=== PATIENT | female | born 1980 | race Caucasian/White ===

== ENCOUNTER 2017-10-17 05:10 | Emergency (ER) | payer OTHER ==
[~2017-10-17] VITALS: Ht 165.1 cm; Wt 111.1 kg
[~2017-10-17 05:10] MED LIST: AMOX500 PO; BISA5EC PO; Bactrim Ds Tab1 EACH PO; DIBU30TO PR; DOCU100 PO; DOXY100 PO; EXPECTA PRENAT1 EACH; HYDACE25S PR; HYDCOR2.5A PR; IBUP800 PO; KETO10 PO; METR500 PO; Monodox100 MG PO; Naprosyn500 MG PO; OXYACE5T PO; PRAHYD1AE TOP; PROCODE120 PO; Percocet 5-3251 EACH PO; Ventolin/Prove6.7 GM INH; Zofran Odt4 MG SL
[2017-10-17 05:54] LABS: BASOPHILS ABSOLUTE AUTO 0.03 K/mm3 (0.00-0.23); BASOPHILS PERCENT AUTO 0 % (0-2); EOSINOPHILS ABSOLUTE AUTO 0.12 K/mm3 (0.00-0.68); EOSINOPHILS PERCENT AUTO 1 % (0-6); Hemoglobin 13.5 g/dL (11.5-16.0); IMMATURE GRAN ABSOLUTE AUTO 0.02 K/mm3 (0.00-0.10); IMMATURE GRAN PERCENT AUTO 0 % (0-1); LYMPHOCYTES ABSOLUTE AUTO 2.91 K/mm3 (0.84-5.20); LYMPHOCYTES PERCENT AUTO 32 % (21-46); MONOCYTES ABSOLUTE AUTO 0.66 K/mm3 (0.16-1.47); MONOCYTES PERCENT AUTO 7 % (4-13); Mean Corpuscular HGB Conc 33.8 g/dL (31.5-36.5); Mean Corpuscular Volume 92 fL (80-100); NEUTROPHILS ABSOLUTE AUTO 5.45 K/mm3 (1.96-9.15); NEUTROPHILS PERCENT AUTO 59 % (41-73); Platelet Count 314 K/mm3 (150-400); RDW Coefficient Variation 13.4 % (11.7-14.2); RDW Standard Deviation 45.5 fL (35.1-46.3); Red Blood Cell Count 4.36 M/mm3 (3.80-5.20); White Blood Cell Count 9.19 K/mm3 (4.00-11.30)
[2017-10-17 06:13] LABS: Alanine Aminotransfer (ALT/SGP 46 U/L (12-78); Albumin, Blood 3.6 g/dL (3.4-5.0); Albumin/Globulin Ratio 0.8 (0.8-1.8); Alk Phos 73 U/L (50-136); Anion Gap 9 mmol/L (6-16); Aspartate Aminotrans (AST/SGOT 23 U/L (12-37); Bilirubin, Total 0.3 mg/dL (0.1-1.0); Blood Urea Nitrogen 9 mg/dL (8-24); Bun/Creatinine Ratio 15.9 (12.0-20.0); CO2, Blood 24 mmol/L (21-32); Calcium, Blood 9.2 mg/dL (8.5-10.1); Chloride, Blood 105 mmol/L (98-108); Creatinine, Blood 0.57 mg/dL (0.40-1.00); Globulin, Blood 4.3 g/dL (2.2-4.0); Glomerular Filtration Rate >60 (60-); Glucose, Blood 94 mg/dL (70-99); Sodium, Blood 138 mmol/L (136-145); Total Protein, Blood 7.9 g/dL (6.4-8.2)
[2017-10-17 07:12] LABS: Beta HCG, Quantitative, Serum 11158 mIU/mL (0-3)
[2017-10-17 07:49] LABS: Source, Urine Clean Catch
[2017-10-17 07:51] LABS: Bilirubin, Urine Neg (Neg); Blood, Urine 2+ (Neg); Glucose Qualitative, Urine Neg (Neg); Ketones, Urine Neg (Neg); Leukocyte Esterase, Urine Neg (Neg); Nitrite, Urine Neg (Neg); Protein, Urine Neg (Neg); Urobilinogen, Urine NORM (Normal)
[2017-10-17 09:16] LABS: Appearance, Urine Clear (Clear); Color, Urine Yellow (P-Yellow); Red Blood Cells, Urine 0-2 /hpf (0-2); Squamous Epithelial Cells Few /hpf (Few); White Blood Cells, Urine Not Seen /hpf (0-5)
[2017-10-17 09:17] LABS: Bacteria Not Seen /hpf; Mucus Light (0-Heavy)
== END 2017-10-17 08:27 | disposition home or self-care (01) ==
LOC: ER 05:10
PROVIDERS: Emergency Medicine
DX: O20.9 Hemorrhage in early pregnancy, unspecified (principal); Z91.018 Allergy to other foods; Z87.891 Personal history of nicotine dependence; Z3A.01 Less than 8 weeks gestation of pregnancy
CPT/HCPCS: 36415; 76801; 76817; 80053; 81001; 84702; 85025; 86900; 86901; 99284-25

== ENCOUNTER 2018-06-15 01:48 | Emergency (ER) | payer OTHER ==
[~2018-06-15] VITALS: Ht 165.1 cm; Wt 104.3 kg
[2018-06-15 02:37] LABS: BASOPHILS ABSOLUTE AUTO 0.05 K/mm3 (0.00-0.23); BASOPHILS PERCENT AUTO 1 % (0-2); EOSINOPHILS ABSOLUTE AUTO 0.13 K/mm3 (0.00-0.68); EOSINOPHILS PERCENT AUTO 1 % (0-6); Hematocrit 42.9 % (33.0-51.0); Hemoglobin 14.5 g/dL (11.5-16.0); IMMATURE GRAN ABSOLUTE AUTO 0.02 K/mm3 (0.00-0.10); IMMATURE GRAN PERCENT AUTO 0 % (0-1); LYMPHOCYTES ABSOLUTE AUTO 5.72 K/mm3 (0.84-5.20); LYMPHOCYTES PERCENT AUTO 52 % (21-46); MONOCYTES ABSOLUTE AUTO 0.89 K/mm3 (0.16-1.47); MONOCYTES PERCENT AUTO 8 % (4-13); Mean Corpuscular HGB 31.1 pg (26.0-34.0); Mean Corpuscular HGB Conc 33.8 g/dL (31.5-36.5); Mean Corpuscular Volume 92 fL (80-100); Mean Platelet Volume 9.2 fL (9.1-12.4); NEUTROPHILS ABSOLUTE AUTO 4.17 K/mm3 (1.96-9.15); NEUTROPHILS PERCENT AUTO 38 % (41-73); Platelet Count 421 K/mm3 (150-400); RDW Coefficient Variation 12.7 % (11.7-14.2); RDW Standard Deviation 42.6 fL (35.1-46.3); Red Blood Cell Count 4.66 M/mm3 (3.80-5.20); White Blood Cell Count 10.98 K/mm3 (4.00-11.30)
[2018-06-15 02:51] LABS: Alanine Aminotransfer (ALT/SGP 36 U/L (12-78); Albumin, Blood 4.2 g/dL (3.4-5.0); Alk Phos 87 U/L (50-136); Anion Gap 12 mmol/L (6-16); Aspartate Aminotrans (AST/SGOT 21 U/L (12-37); Bilirubin, Total 0.2 mg/dL (0.1-1.0); Blood Urea Nitrogen 14 mg/dL (8-24); Bun/Creatinine Ratio 21.5 (12.0-20.0); CO2, Blood 21 mmol/L (21-32); Calcium, Blood 9.6 mg/dL (8.5-10.1); Chloride, Blood 106 mmol/L (98-108); Creatinine, Blood 0.65 mg/dL (0.40-1.00); Globulin, Blood 4.4 g/dL (2.2-4.0); Glomerular Filtration Rate >60 (60-); Glucose, Blood 118 mg/dL (70-99); Potassium, Blood 3.5 mmol/L (3.5-5.5); Sodium, Blood 139 mmol/L (136-145); Total Protein, Blood 8.6 g/dL (6.4-8.2); Troponin I <0.015 ng/mL (0.000-0.040)
== END 2018-06-15 03:55 | disposition home or self-care (01) ==
LOC: ER 01:48
PROVIDERS: Emergency Medicine
DX: I48.91 Unspecified atrial fibrillation (principal); Z91.018 Allergy to other foods; Z87.891 Personal history of nicotine dependence
CPT/HCPCS: 36415; 71046; 80053; 83880; 84484; 85025; 93005; 93010; 96361; 96374; 99285-25; J7030

== ENCOUNTER 2019-01-20 08:59 | Emergency (ER) | payer OTHER ==
[~2019-01-20] VITALS: Ht 165.1 cm; Wt 85.7 kg
[2019-01-20] MEDS ORDERED: KETO10 PO (10:38)
[2019-01-20] MEDS ORDERED: Percocet 5-3251 EACH PO (10:38)
== END 2019-01-20 11:27 | disposition home or self-care (01) ==
LOC: ER 08:59
DX: S82.832A Other fracture of upper and lower end of left fibula, initial encounter for closed fracture (principal); S82.892A Other fracture of left lower leg, initial encounter for closed fracture; X50.9XXA Other and unspecified overexertion or strenuous movements or postures, initial encounter; Z91.018 Allergy to other foods
CPT/HCPCS: 29515; 73610; 96372-59; 99283-25; A9270-GY; J1885

== ENCOUNTER 2019-10-13 06:47 | Emergency (ER) | payer OTHER ==
[~2019-10-13] VITALS: Ht 165.1 cm; Wt 85.7 kg
[~2019-10-13 06:47] MED LIST changes: +CYCL10 PO
[2019-10-13] MEDS ORDERED: Roxicodone5 MG PO (08:51)
[2019-10-13] MEDS ORDERED: Naproxen500 MG PO (08:51)
[2019-10-13] MEDS ORDERED: Neurontin 300300 MG PO (08:51)
== END 2019-10-13 09:02 | disposition home or self-care (01) ==
LOC: ER 06:47
DX: M54.12 Radiculopathy, cervical region (principal); Z91.018 Allergy to other foods
CPT/HCPCS: 72040; 96372; 99283-25; J1170

== ENCOUNTER 2019-11-11 11:03 | Emergency (ER) | payer OTHER ==
[~2019-11-11] VITALS: Ht 165.1 cm; Wt 86.2 kg
[~2019-11-11 11:03] MED LIST changes: +Naproxen500 MG PO; +Neurontin 300300 MG PO; +Roxicodone5 MG PO
[2019-11-11] MEDS ORDERED: IBUP800 PO (11:56)
[2019-11-11] MEDS ORDERED: METPRE4DP PO (11:56)
[2019-11-11] MEDS ORDERED: PREG150 PO (11:56)
== END 2019-11-11 13:14 | disposition home or self-care (01) ==
LOC: ER 11:03
DX: M54.12 Radiculopathy, cervical region (principal); F17.200 Nicotine dependence, unspecified, uncomplicated; Z91.018 Allergy to other foods; Z79.899 Other long term (current) drug therapy
CPT/HCPCS: 96372; 99283-25; J1100; J1885

== ENCOUNTER 2019-11-20 14:02 | Emergency (ER) | payer OTHER ==
[~2019-11-20] VITALS: Ht 165.1 cm; Wt 86.2 kg
[~2019-11-20 14:02] MED LIST changes: +METPRE4DP PO; +PREG150 PO
[2019-11-20] MEDS ORDERED: Percocet 5-3251 EACH PO (16:33)
== END 2019-11-20 17:24 | disposition home or self-care (01) ==
LOC: ER 14:02
DX: M54.6 Pain in thoracic spine (principal); M25.512 Pain in left shoulder; F17.210 Nicotine dependence, cigarettes, uncomplicated; Z91.018 Allergy to other foods; Z88.8 Allergy status to other drugs, medicaments and biological substances; W10.9XXA Fall (on) (from) unspecified stairs and steps, initial encounter
CPT/HCPCS: 72070; 73030; 99283-25

== ENCOUNTER 2020-09-23 15:56 | Emergency (ER) | payer OTHER ==
[~2020-09-23] VITALS: Ht 165.1 cm; Wt 104.3 kg
[2020-09-23 17:11] LABS: BASOPHILS ABSOLUTE AUTO 0.04 K/mm3 (0.00-0.23); BASOPHILS PERCENT AUTO 0 % (0-2); EOSINOPHILS ABSOLUTE AUTO 0.08 K/mm3 (0.00-0.68); EOSINOPHILS PERCENT AUTO 1 % (0-6); Hematocrit 36.5 % (33.0-51.0); Hemoglobin 12.5 g/dL (11.5-16.0); IMMATURE GRAN ABSOLUTE AUTO 0.06 K/mm3 (0.00-0.10); IMMATURE GRAN PERCENT AUTO 1 % (0-1); LYMPHOCYTES ABSOLUTE AUTO 2.11 K/mm3 (0.84-5.20); LYMPHOCYTES PERCENT AUTO 18 % (21-46); MONOCYTES ABSOLUTE AUTO 0.74 K/mm3 (0.16-1.47); MONOCYTES PERCENT AUTO 6 % (4-13); Mean Corpuscular HGB Conc 34.2 g/dL (31.5-36.5); Mean Corpuscular Volume 96 fL (80-100); Mean Platelet Volume 9.2 fL (9.1-12.4); NEUTROPHILS ABSOLUTE AUTO 8.45 K/mm3 (1.96-9.15); NEUTROPHILS PERCENT AUTO 74 % (41-73); Platelet Count 268 K/mm3 (150-400); RDW Coefficient Variation 13.5 % (11.7-14.2); RDW Standard Deviation 47.5 fL (35.1-46.3); Red Blood Cell Count 3.79 M/mm3 (3.80-5.20); White Blood Cell Count 11.48 K/mm3 (4.00-11.30)
[2020-09-23 17:15] LABS: Source, Urine Clean Catch
[2020-09-23 17:25] LABS: Alanine Aminotransfer (ALT/SGP 24 U/L (12-78); Albumin, Blood 3.4 g/dL (3.4-5.0); Albumin/Globulin Ratio 0.8 (0.8-1.8); Alk Phos 52 U/L (50-136); Anion Gap 14 mmol/L (6-16); Aspartate Aminotrans (AST/SGOT 22 U/L (12-37); Bilirubin, Total 0.2 mg/dL (0.1-1.0); Blood Urea Nitrogen 9 mg/dL (8-24); Bun/Creatinine Ratio 21.6 (12.0-20.0); CO2, Blood 18 mmol/L (21-32); Calcium, Blood 9.2 mg/dL (8.5-10.1); Chloride, Blood 105 mmol/L (98-108); Creatinine, Blood 0.42 mg/dL (0.40-1.00); Globulin, Blood 4.4 g/dL (2.2-4.0); Glomerular Filtration Rate >60 (60-); Glucose, Blood 80 mg/dL (70-99); Potassium, Blood 3.4 mmol/L (3.5-5.5); Sodium, Blood 137 mmol/L (136-145); Total Protein, Blood 7.8 g/dL (6.4-8.2)
[2020-09-23 17:26] LABS: Appearance, Urine Hazy (Clear); Bilirubin, Urine Neg (Neg); Blood, Urine Neg (Neg); Color, Urine Yellow (P-Yellow); Glucose Qualitative, Urine Neg (Neg); Ketones, Urine 3+ (Neg); Leukocyte Esterase, Urine Neg (Neg); Nitrite, Urine Neg (Neg); Protein, Urine 1+ (Neg); Urobilinogen, Urine NORM (Normal)
[2020-09-23 17:53] LABS: Bacteria Many /hpf; Red Blood Cells, Urine 0-2 /hpf (0-2); Squamous Epithelial Cells Mod /hpf (Few); White Blood Cells, Urine 0-2 /hpf (0-5)
== END 2020-09-23 19:05 | disposition home or self-care (01) ==
LOC: ER 15:56
PROVIDERS: Physician Assistant
DX: R00.2 Palpitations (principal); I48.91 Unspecified atrial fibrillation; F17.210 Nicotine dependence, cigarettes, uncomplicated; Z91.018 Allergy to other foods; Z79.899 Other long term (current) drug therapy
CPT/HCPCS: 36415; 80053; 81001; 85025; 87086; 93005; 93010; 99284-25

== ENCOUNTER 2021-01-24 09:45 | Observation (INO) | payer OTHER ==
[~2021-01-24] VITALS: Ht 165.1 cm; Wt 109.0 kg
[2021-01-24 10:33] LABS: BASOPHILS ABSOLUTE AUTO 0.01 K/mm3 (0.00-0.23); BASOPHILS PERCENT AUTO 0 % (0-2); EOSINOPHILS ABSOLUTE AUTO 0.03 K/mm3 (0.00-0.68); EOSINOPHILS PERCENT AUTO 0 % (0-6); Hematocrit 34.4 % (33.0-51.0); Hemoglobin 11.6 g/dL (11.5-16.0); IMMATURE GRAN ABSOLUTE AUTO 0.02 K/mm3 (0.00-0.10); IMMATURE GRAN PERCENT AUTO 0 % (0-1); LYMPHOCYTES ABSOLUTE AUTO 1.37 K/mm3 (0.84-5.20); LYMPHOCYTES PERCENT AUTO 20 % (21-46); MONOCYTES ABSOLUTE AUTO 0.57 K/mm3 (0.16-1.47); MONOCYTES PERCENT AUTO 8 % (4-13); Mean Corpuscular HGB 31.2 pg (26.0-34.0); Mean Corpuscular HGB Conc 33.7 g/dL (31.5-36.5); Mean Corpuscular Volume 93 fL (80-100); Mean Platelet Volume 9.1 fL (9.1-12.4); NEUTROPHILS ABSOLUTE AUTO 4.89 K/mm3 (1.96-9.15); NEUTROPHILS PERCENT AUTO 71 % (41-73); Platelet Count 219 K/mm3 (150-400); RDW Coefficient Variation 13.9 % (11.7-14.2); RDW Standard Deviation 47.8 fL (35.1-46.3); Red Blood Cell Count 3.72 M/mm3 (3.80-5.20); White Blood Cell Count 6.89 K/mm3 (4.00-11.30)
[2021-01-24 11:16] LABS: Alanine Aminotransfer (ALT/SGP 16 U/L (12-78); Albumin, Blood 2.9 g/dL (3.4-5.0); Albumin/Globulin Ratio 0.8 (0.8-1.8); Alk Phos 112 U/L (50-136); Anion Gap 10 mmol/L (6-16); Aspartate Aminotrans (AST/SGOT 13 U/L (12-37); Bilirubin, Total 0.4 mg/dL (0.1-1.0); Blood Urea Nitrogen 7 mg/dL (8-24); Bun/Creatinine Ratio 13.5 (12.0-20.0); CO2, Blood 20 mmol/L (21-32); Chloride, Blood 107 mmol/L (98-108); Creatinine, Blood 0.52 mg/dL (0.40-1.00); Globulin, Blood 3.7 g/dL (2.2-4.0); Glomerular Filtration Rate >60 (60-); Glucose, Blood 94 mg/dL (70-99); Potassium, Blood 3.5 mmol/L (3.5-5.5); Sodium, Blood 137 mmol/L (136-145); Total Protein, Blood 6.6 g/dL (6.4-8.2)
[2021-01-24 13:11] LABS: Protein, Urine Random 13.7 mg/dL (0.0-11.9)
[2021-01-24 13:12] LABS: Creatinine, Urine Random 50.3 mg/dL (27.00-270.00); Protein/Creat Ratio, Ur Random 0.3
[2021-01-24] MEDS ORDERED: LABE100 PO (14:22)
[2021-01-24] MEDS ORDERED: PRENATAL TABLE1 EAC2 PO (14:23)
[2021-01-24] MEDS ORDERED: BUTALB-ACETAMI1 EAC7 PO (14:27)
[2021-01-24 15:07] LABS: Influenza A, PCR NEGATIVE (NEGATIVE); Influenza B, PCR NEGATIVE (NEGATIVE); Resp Syncytial Virus, PCR NEGATIVE (NEGATIVE); SARS-Cov-2 (COVID-19) PCR, MMC NEGATIVE (NEGATIVE)
--- NOTE | 2021-01-24 17:10 | NUR ---
STATES PAIN IN HEAD COMING BACK WILL MEDICATE AT NEXT DOSE DUE, COMFORT MEASURES ARENT WORKING, STATES SHE DOESNT WANT ANYTHING STRONGER UNTIL NEXT DOSE DUE, STATES 10/05, ROOM DARK DENIES NAUSEA, EATING DINNER
--- NOTE | 2021-01-24 18:28 | NUR ---
STATES HEADACHE BACK AT 8 STATES NOT WORSE THAN WHEN SHE CAME IN, STATES NOTHNG REALLY HELPS, MEDICATED, CBG 123 AFTER DINNER, ROOM DARK,
[2021-01-25 14:37] LABS: Protein, Urine Quantitative 24.6 mg/dL (0.0-11.9)
--- NOTE | 2021-01-25 16:45 | NUR ---
Imaging come to get pt for CT scan. Pt reports H/A persisting, declines medications as they dont' seem to be doing much for her. Pt is curious is she is able to d/c home after CT or if she needs to wait for results. CNM is coming to round after office hours and said she would see pt prior to discharge.
--- NOTE | 2021-01-25 17:04 | NUR ---
Pt just back from CT.
--- NOTE | 2021-01-25 18:30 | NUR ---
Printed preeclampsia/eclampsia instructions given for pt to review. Pt verbalizes understanding of follow up appointments, home care and precautions. Denies additional questions/concerns.
== END 2021-01-25 18:35 | disposition home or self-care (01) ==
LOC: BC 09:45 → OBS 09:45 → BC 13:50
PROVIDERS: Advanced Practice Midwife; ADMIT Obstetrics & Gynecology
DX: O13.3 Gestational [pregnancy-induced] hypertension without significant proteinuria, third trimester (principal); Z3A.35 35 weeks gestation of pregnancy; O26.893 Other specified pregnancy related conditions, third trimester; R56.9 Unspecified convulsions; O99.333 Smoking (tobacco) complicating pregnancy, third trimester; F17.210 Nicotine dependence, cigarettes, uncomplicated; Z91.018 Allergy to other foods; Z20.822 Contact with and (suspected) exposure to COVID-19
CPT/HCPCS: 0241U; 36415; 36416; 59025; 70450; 76819; 80053; 82570; 82947; 84156; 85025; 96374; A9270; G0378; J2405

== ENCOUNTER 2021-02-08 07:28 | Inpatient (IN) | payer OTHER ==
--- NOTE | 2021-02-07 14:48 | NUR ---
P/C TO PATIENT LEFT MESSAGE TO CALL [facility]
[~2021-02-08] VITALS: Ht 165.1 cm; Wt 105.5 kg
[~2021-02-08 07:28] MED LIST changes: +BUTALB-ACETAMI1 EAC7 PO; +LABE100 PO; +PRENATAL TABLE1 EAC2 PO
[2021-02-08] MEDS ORDERED: IRON18 MG (08:32)
[2021-02-08 08:33] LABS: BASOPHILS ABSOLUTE AUTO 0.02 K/mm3 (0.00-0.23); BASOPHILS PERCENT AUTO 0 % (0-2); EOSINOPHILS ABSOLUTE AUTO 0.05 K/mm3 (0.00-0.68); EOSINOPHILS PERCENT AUTO 1 % (0-6); Hematocrit 34.7 % (33.0-51.0); Hemoglobin 11.9 g/dL (11.5-16.0); IMMATURE GRAN ABSOLUTE AUTO 0.03 K/mm3 (0.00-0.10); IMMATURE GRAN PERCENT AUTO 0 % (0-1); LYMPHOCYTES ABSOLUTE AUTO 1.52 K/mm3 (0.84-5.20); LYMPHOCYTES PERCENT AUTO 19 % (21-46); MONOCYTES PERCENT AUTO 9 % (4-13); Mean Corpuscular HGB 30.8 pg (26.0-34.0); Mean Corpuscular HGB Conc 34.3 g/dL (31.5-36.5); Mean Corpuscular Volume 90 fL (80-100); Mean Platelet Volume 9.1 fL (9.1-12.4); NEUTROPHILS PERCENT AUTO 70 % (41-73); Platelet Count 264 K/mm3 (150-400); RDW Coefficient Variation 14.1 % (11.7-14.2); RDW Standard Deviation 46.3 fL (35.1-46.3); Red Blood Cell Count 3.86 M/mm3 (3.80-5.20); White Blood Cell Count 7.82 K/mm3 (4.00-11.30)
--- NOTE | 2021-02-08 09:21 | NUR ---
PT HERE FOR [facility], IN STARTED PT TOLRATED WELL. PT DESIRE STERILIZATION. PAPER WORK SIGNED.
[2021-02-08 10:44] LABS: PCO2 Cord - Arterial 50.5 mmHg (40-50); PO2 Cord - Arterial 15.9 mmHg (16-20); pH Cord - Arterial 7.23 (7.28-7.35)
[2021-02-08 10:45] LABS: PCO2 Cord - Venous 42.7 mmHg (40-50); PO2 Cord - Venous 23.6 mmHg (28-32); pH Umbilical Cord - Venous 7.34 (7.26-7.35)
--- NOTE | 2021-02-08 11:01 | NUR ---
02/08/21 1101 Roseline Rapp DELIVERY OF VIABLE FEMALE INFANT, APGARS 9/9, WEIGHT 3125 GMS. PLACENTA DELIVERED MANUALLY AND COMPLETE. BILATERAL SALPINGECTOMY PERFORMED. RIGHT AND LEFT FALLOPIAN TUBE SEGMENTS SENT TO PATHOLOGY.
--- NOTE | 2021-02-08 12:13 | NUR ---
NB BABY GIRL BORN AT 37 1/7 GESTATION 9, DELIVERY BY [facility], CORD GAS SENT WITH RT
--- NOTE | 2021-02-08 18:50 | NUR ---
pt feels better with the dilaudid 1mg given, she feels like she is a whimp. reports this worked for her pain
--- NOTE | 2021-02-08 20:29 | NUR ---
IV machine was going off, notified nurse. Patient was feeding baby. No other needs from patient at this time.
[2021-02-09 06:00] LABS: BASOPHILS ABSOLUTE AUTO 0.03 K/mm3 (0.00-0.23); BASOPHILS PERCENT AUTO 0 % (0-2); EOSINOPHILS ABSOLUTE AUTO 0.07 K/mm3 (0.00-0.68); EOSINOPHILS PERCENT AUTO 1 % (0-6); Hematocrit 30.2 % (33.0-51.0); Hemoglobin 10.5 g/dL (11.5-16.0); IMMATURE GRAN ABSOLUTE AUTO 0.04 K/mm3 (0.00-0.10); IMMATURE GRAN PERCENT AUTO 0 % (0-1); LYMPHOCYTES ABSOLUTE AUTO 2.16 K/mm3 (0.84-5.20); LYMPHOCYTES PERCENT AUTO 19 % (21-46); MONOCYTES ABSOLUTE AUTO 1.02 K/mm3 (0.16-1.47); MONOCYTES PERCENT AUTO 9 % (4-13); Mean Corpuscular HGB 31.9 pg (26.0-34.0); Mean Corpuscular HGB Conc 34.8 g/dL (31.5-36.5); Mean Corpuscular Volume 92 fL (80-100); Mean Platelet Volume 9.1 fL (9.1-12.4); NEUTROPHILS ABSOLUTE AUTO 8.11 K/mm3 (1.96-9.15); NEUTROPHILS PERCENT AUTO 71 % (41-73); Platelet Count 217 K/mm3 (150-400); RDW Standard Deviation 47.3 fL (35.1-46.3); Red Blood Cell Count 3.29 M/mm3 (3.80-5.20); White Blood Cell Count 11.43 K/mm3 (4.00-11.30)
--- NOTE | 2021-02-09 21:45 | NUR ---
SPOKE WITH PATIENT ABOUT PAIN CONTROL. PATIENT DECLINES HEATING PAD DUE TO HER BEING HOT. INCISION WAS ASSESSED: WELL APPROXIMATED, DRY, SMALL AMOUNT OF DRAINAGE ON THE RIGHT SIDE. READJUSTED BINDER. PATIENT REPORTS SHE HAS BEEN GOT UP A LOT DURING THE DAY AND TRIED WALKING AROUND IN HER ROOM. SHE HAS INCREASED HER WATER INTAKE, WHICH CAUSES HER TO VOID MORE, CAUSING MORE PAIN, PER PATIENT. WE DISCUSSED THE NEED TO GET UP AND AROUND. SHE WAS ENCOURAGED TO NOT DECREASE HER WATER INTAKE. SHE REPOSITIONED HERSELF IN BED. HER SO IS TRYING TO USE DISTRACTION TO HELP HER PAIN. SHE REPORTED HER PAIN BEING 9/10. SHE DOES APPEAR TO BE IN PAIN, THOUGH SHE IS USING HER PHONE AND TALKING WELL.
--- NOTE | 2021-02-10 02:20 | NUR ---
PATIENT REQUESTED PAIN MEDICATION DUE TO A PAIN RATING OF 10/10 ON A PAIN SCALE. I DID ASK IF SHE AGREED THAT THIS IS THE WORST PAIN SHE EVER FELT IN HER LIFE AND SHE SAID SHE THINKS SO. PATIENT IS RELAXED, SITTING UP IN BED, USING HER PHONE. HER FACIAL EXPRESSIONS MAKES HER APPEAR TO BE IN PAIN, OTHERWISE SHE IS NOT SHOWING OTHER APPEARANCE SIGNS THAT SHE IS IN SIGNIFICANT PAIN OR IN DISTRESS.
--- NOTE | 2021-02-10 03:30 | NUR ---
WHEN RE-EVALUATING THE PATIENT'S PAIN, SHE REPORTS THAT HER PAIN DID NOT DECREASE FROM A SCORE OF 10/10. IT WAS OFFERED TO PATIENT TO GET UP AND SHOWER, WALK, HEATING PAD, POSITION CHANGE AND THESE WERE DECLINED. VITAL SIGNS HAVE BEEN WNL AND SHE DOES NOT APPEAR TO BE IN DISTRESS.
--- NOTE | 2021-02-10 06:30 | NUR ---
PATIENT REPORTS PAIN 9/10. BROUGHT PAIN MEDICATED REQUESTED. PATIENT IS RELAXED ON THE BED, SITTING UP, USING HER PHONE.
[2021-02-10] MEDS ORDERED: IBUP800 PO (09:38)
[2021-02-10] MEDS ORDERED: Percocet 5-3251 EACH PO (09:38)
--- NOTE | 2021-02-10 10:15 | NUR ---
DISCHARGED HOME WITH . BANDS MATCHED.
== END 2021-02-10 10:20 | disposition home or self-care (01) | DRG 784 ==
LOC: BC 07:28
PROVIDERS: ADMIT Obstetrics & Gynecology
PROC: 10D00Z1 Extraction of Products of Conception, Low, Open Approach (ICD-10-PCS; principal; 2021-02-08 09:45)
PROC: 0UT70ZZ Resection of Bilateral Fallopian Tubes, Open Approach (ICD-10-PCS; 2021-02-08 09:45)
DX: O34.211 Maternal care for low transverse scar from previous cesarean delivery (principal); O99.354 Diseases of the nervous system complicating childbirth; O99.324 Drug use complicating childbirth; O40.3XX0 Polyhydramnios, third trimester, not applicable or unspecified; O13.4 Gestational [pregnancy-induced] hypertension without significant proteinuria, complicating childbirth; O24.420 Gestational diabetes mellitus in childbirth, diet controlled; O99.214 Obesity complicating childbirth; E66.9 Obesity, unspecified; F12.90 Cannabis use, unspecified, uncomplicated; Z20.822 Contact with and (suspected) exposure to COVID-19; G40.909 Epilepsy, unspecified, not intractable, without status epilepticus; O99.334 Smoking (tobacco) complicating childbirth; F17.210 Nicotine dependence, cigarettes, uncomplicated; Z3A.37 37 weeks gestation of pregnancy; Z30.2 Encounter for sterilization; Z37.0 Single live birth
CPT/HCPCS: 36415; 82803; 82947; 85025; 86850; 86900; 86901; 88302; A9270; J0690; J1100; J1170; J1580; J1885; J2210; J2270; J2370; J2405; J2590; J2704; J2765; J3010; J7120

== ENCOUNTER 2023-11-16 15:58 | Emergency (ER) | payer OTHER ==
[~2023-11-16] VITALS: Ht 165.1 cm; Wt 108.9 kg
[~2023-11-16 15:58] MED LIST changes: +IRON18 MG
[2023-11-16 16:07] VITALS: BP 161/108
== END 2023-11-16 16:58 | disposition home or self-care (01) ==
LOC: ER 15:58
DX: L98.9 Disorder of the skin and subcutaneous tissue, unspecified (principal); F17.210 Nicotine dependence, cigarettes, uncomplicated
CPT/HCPCS: 99282